=== PATIENT | female | born 1945 | race Two or more races ===

== ENCOUNTER 2022-12-02 07:00 | Inpatient (IN) | payer OTHER ==
[~2022-12-02] VITALS: Ht 162.6 cm; Wt 78.9 kg
[2022-12-02] MEDS ORDERED: LORADAMED10 MG PO (08:18)
[2022-12-02] MEDS ORDERED: BIOTIN1 M1 PO (08:18)
[2022-12-02] MEDS ORDERED: CHILDREN'S ASPI81 MG PO (08:18)
[2022-12-02] MEDS ORDERED: CENTRUM ADULTS1 EACH PO (08:19)
[2022-12-02] MEDS ORDERED: MULTIPLE VITAM1 EAC2 PO (08:19)
[2022-12-08] MEDS ORDERED: JANUVIA25 MG (13:13)
[2022-12-08] MEDS ORDERED: LEVOTHYROXINE50 MCG (13:13)
[2022-12-08] MEDS ORDERED: OMEPRAZOLE40 MG (13:14)
[2022-12-08] MEDS ORDERED: DAFLONEX-XL 11300 MG (13:14)
[2022-12-10] MEDS ORDERED: BACTRIM DS TAB1 EACH PO (07:58)
[2022-12-10] MEDS ORDERED: OXYC1TAB9 PO (07:58)
[2022-12-10] MEDS ORDERED: XARELTO10 MG PO (07:58)
[2022-12-10] MEDS ORDERED: INTEGRA PLUS C1 EACH PO (07:58)
== END 2022-12-10 16:36 | disposition home or self-care (01) | DRG 468 ==
LOC: SURG 12-08 07:00 → O/R 12-08 08:54 → SURG 12-08 10:30
PROVIDERS: ADMIT Orthopaedic Surgery Sports Medicine; ATTEND Orthopaedic Surgery Sports Medicine
PROC: 0SRD0J9 Replacement of Left Knee Joint with Synthetic Substitute, Cemented, Open Approach (ICD-10-PCS; 2022-12-08)
PROC: 0SPD0JZ Removal of Synthetic Substitute from Left Knee Joint, Open Approach (ICD-10-PCS; principal; 2022-12-08 10:30)
DX: T84.033A Mechanical loosening of internal left knee prosthetic joint, initial encounter (principal); M17.12 Unilateral primary osteoarthritis, left knee